=== PATIENT | female | born 1940 | race Caucasian/White ===

== ENCOUNTER 2023-03-17 07:51 | Day surgery (SDC) | payer MEDICARE ==
[~2023-03-17] VITALS: Ht 144.8 cm; Wt 45.0 kg
[2023-03-17 08:10] VITALS: BP 138/75; PULSE 65; RESP 16; TEMP 97.7; O2SAT 99
[2023-03-17] MEDS ORDERED: albumin 25% 100mL bottle x 1 IV PRN (08:15)
[2023-03-17] MEDS ORDERED: normal saline 1000ml 1,000 ML IV PRN (08:20)
[2023-03-17] MEDS ORDERED: VALS160T30 (08:27)
[2023-03-17] MEDS ORDERED: CAPE500T PO (08:27)
[2023-03-17] MEDS ORDERED: ONDA-104 PO (08:27)
[2023-03-17] MEDS ORDERED: MULT-1085 PO (08:27)
[2023-03-17] MEDS ORDERED: OSC500T PO (08:27)
[2023-03-17] MEDS ORDERED: ATOR20TA66 PO (08:27)
[2023-03-17] MEDS ORDERED: LACT1CAP65 PO (08:27)
[2023-03-17] MEDS ORDERED: CHOL20004 PO (08:27)
[2023-03-17 08:45] VITALS: RESP 16; O2SAT 99
== END 2023-03-17 09:20 | disposition home or self-care (01) ==
LOC: SSTAY O 07:51
PROVIDERS: ATTEND Radiology Diagnostic Radiology
DX: R18.8 Other ascites (principal); Z53.8 Procedure and treatment not carried out for other reasons; R14.0 Abdominal distension (gaseous); D70.2 Other drug-induced agranulocytosis; I10 Essential (primary) hypertension; E78.5 Hyperlipidemia, unspecified; K21.9 Gastro-esophageal reflux disease without esophagitis; C16.9 Malignant neoplasm of stomach, unspecified; Z88.8 Allergy status to other drugs, medicaments and biological substances; Z91.048 Other nonmedicinal substance allergy status; Z79.899 Other long term (current) drug therapy; Z85.3 Personal history of malignant neoplasm of breast
CPT/HCPCS: 76705; A6258